=== PATIENT | male | born 1990 | race Caucasian/White ===

== ENCOUNTER 2017-06-26 15:38 | Emergency (ER) | payer OTHER ==
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
[2017-06-26 16:46] LABS: ALANINE AMINOTRANSFERASE 51 U/L (21-72); ALBUMIN 4.9 g/dL (3.5-5.0); ALCOHOL 30 mg/dL (NONE DETECTED); ALKALINE PHOSPHATASE 50 U/L (38-126); ANION GAP 15 (5-19); ASPARTATE AMINO TRANSFERASE 33 U/L (17-59); BILIRUBIN,DIRECT 0.4 mg/dL (0.0-0.4); BILIRUBIN,TOTAL 0.8 mg/dL (0.2-1.3); BLOOD UREA NITROGEN 11 mg/dL (7-20); CALCIUM 9.2 mg/dL (8.4-10.2); CARBON DIOXIDE 28 mmol/L (22-30); CHLORIDE 106 mmol/L (98-107); CREATININE RESULT 0.83 mg/dL (0.52-1.25); GLUCOSE 96 mg/dL (75-110); POTASSIUM 4.2 mmol/L (3.6-5.0); SODIUM 148.5 mmol/L (137-145); TOTAL PROTEIN 7.6 g/dL (6.3-8.2)
[2017-06-26 16:50] LABS: ABSOLUTE EOSINOPHILS # (AUTO) 0.1 10^3/uL (0.0-0.6); ABSOLUTE MONOCYTES (AUTO) 0.5 10^3/uL (0.1-1.4); ABSOLUTE NEUT (AUTO) 4.6 10^3/uL (1.7-8.2); BASOPHILS % (AUTO) 0.5 % (0-2); EOSINOPHILS % (AUTO) 0.9 % (0-6); HEMATOCRIT 46.7 % (37.9-51.0); HEMOGLOBIN 16.4 g/dL (13.5-17.0); HGB HCT DIFFERENCE 2.5; LYMPHOCYTES % (AUTO) 27.8 % (13-45); MEAN CORPUSCULAR HEMOGLOBIN 30.4 pg (27.0-33.4); MEAN CORPUSCULAR HGB CONC 35.2 g/dL (32.0-36.0); MEAN CORPUSCULAR VOLUME 86 fl (80-97); MONOCYTES % (AUTO) 6.4 % (3-13); RED CELL DISTRIBUTION WIDTH 13.2 % (11.5-14.0); SEGMENTED NEUTROPHILS % (AUTO) 64.4 % (42-78); WHITE BLOOD COUNT 7.1 10^3/uL (4.0-10.5)
[2017-06-26 17:37] LABS: APPEARANCE,URINE CLEAR; BILIRUBIN,URINE NEGATIVE (NEGATIVE); GLUCOSE, URINE NEGATIVE (NEGATIVE); KETONES,URINE NEGATIVE (NEGATIVE); LEUKOCYTE ESTERASE,URINE NEGATIVE (NEGATIVE); NITRITE,URINE NEGATIVE (NEGATIVE); PROTEIN,URINE NEGATIVE (NEGATIVE); URINE SPECIFIC GRAVITY 1.027
[2017-06-26 17:54] LABS: URINE BARBITURATES SCREEN NEGATIVE; URINE METHADONE SCREEN NEGATIVE; URINE OPIATES LOW NEGATIVE; URINE PHENCYCLIDINE SCREEN NEGATIVE
--- NOTE | 2017-06-26 19:50 | EKG REPORT ---
SEVERITY:- BORDERLINE ECG - SINUS RHYTHM PROBABLE LEFT ATRIAL ABNORMALITY BORDERLINE LEFT AXIS DEVIATION : Confirmed by: Bryce Purvis MD 26-Jun-2017 19:49:41
--- NOTE | 2017-06-27 09:42 | ER Document Report ---
Doctor's Note Notes: 06/27/17 09:41 Rounds: Chart reviewed and patient interviewed. Patient seems to be positive thinking this morning. Denies any suicidal thoughts at this time. Says he has made arrangements for some place to live for the next 5 months. The gun which he had last night is in police custody at this time. Vital signs are all normal. Labs were normal except for an alcohol level of 30. Patient appears to be medically stable for transfer or discharge. John Roberts MD
--- NOTE | 2017-06-27 09:56 | PSYCHOLOGICAL NOTE ---
Psych Note - Psych Note Psych Note: Patient is a 27-year-old male who presented via EMS yesterday afternoon due to suicidal ideations and gesture. Patient reportedly threatened to shoot himself and had access to a EMS did report yesterday afternoon [employer] assumed the loaded gun for which the patient documentation. Patient did have a detectable amount of alcohol in his blood system around 30. Patient reportedly argued with his and was asked to leave at which time he gestured he would shoot himself. Patient this morning states he had no intention of shooting himself nor does he want to by suicide at this time. Patient states he and his recently relocated from [place] reside in [place] warmer climate. He states he "messed up" earlier in the week and she did on his . Patient reports his found out and gave him until yesterday to remove his belongings from their residence. Patient states he went to the house to secure his belongings and found everything packed so he attempted to organize his belongings and ensure everything was there. Patient states this is when he made the comment, "should I really do it?" She reports his asked what he meant and he gestured shooting himself with a gun. Patient reports he does not have his gun that it is with law-enforcement and that should he retrieve that he plans to sell it to his father. Patient reports no prior episodes of suicidal ideations and/or attempts. Patient further reports no prior mental health inpatient or outpatient treatment. Patient provides verbal consent to speak with his . Patient states should he be discharged he plans to reside with a coworker from the [facility]. Patient's , Pat [phone] states: they are in the middle of a separation and she asked him to come and get his belongings. She states he came and went through his belongings, and all of a sudden said he was going to kill himself, pulled the gun out of the holster, etc. She states he started to walk away and then said he wouldn't do it here but would do it someplace else. reports at that time she got the gun and gave it to her friend who was present to take out of the home. She states she called the police, who arrive on scene. She states the patient has threatened suicide once before, while acutely intoxicated a number of years ago when she told him she wanted to break up with him. reports at that time they were in a parking garage and he went to the edge and hung over, but came back around. reports she does not know of any other prior episodes, and states the patient is not close with either of his parents and they would not be good historians in that regards. reports the patient still has his belongings in their apartment and picker box operator of the belongings will need to be coordinated. [employer]: Sgt Ocampo reports the patient's gun is there for safekeeping; however, patient is able to retrieve the weapon after 14 days. Note, there is a receipt in patient's belongings with . Friend/CoworkerTrevor states: voicemail box has not been set up. Friend/CoworkerZhou states: left msg requesting return contact. Friend did return contact after multiple attempts and stated he was in class at the [employer] and had his phone off. Friend reported he had an understanding of the patient's episode, that he is not to have access to weapons , and will be staying with him for the remainder of his lease around 5 months. Friend reported no concerns. R/O Alcohol Use Disorder Patient is alert and oriented. Mood is euthymic with normal/smiling affect. Patient denies suicidal/homicidal ideations, intent, plan, means. Patient denies A/VH; delusions were not noted. Thought processes were organized. Conversational speech was within normal limits for rate, tone, and prosody. Intellectual abilities were estimated within average range. Attention and focus were fair. Insight, judgment, impulse control are poor. Patient is psychiatrically cleared. Patient is recommended to follow-up with integrated family services for outpatient therapy. Discussed with patient the need to engage in therapy to establish appropriate coping skills to deal with his stressors of marital discord and subsequent separation. Patient verbalizes he understands he is not permitted to retrieve his gun from safekeeping for roughly 2 weeks. Patient adamantly denies suicidal/homicidal ideations. Patient' friend states he has never known the patient to be suicidal , reports that he will assist him in following ups, and states that the patient will be residing with him. Patient has no prior suicide attempts and/or inpatient treatment; however, his did report an episode while intoxicated a number of years ago. I consulted with Dr. Kauffman in regards to the care and management of this patient. Did attempt to schedule an appointment on the patient's behalf; however, was unable to get through on the phone number. Patient will be provided resources. Patient is encouraged to abstain from alcohol use. EDMD is in agreement with disposition and recommendations.
[2017-06-27 10:47] VITALS: BP 151/72
== END 2017-06-27 11:29 | disposition home or self-care (01) ==
LOC: ER 15:38
DX: R45.851 Suicidal ideations (principal); F10.10 Alcohol abuse, uncomplicated
CPT/HCPCS: 36415; 80053; 80307; 81001; 85025; 93005; 93010; 99285